=== PATIENT | female | born 1965 | race Caucasian/White ===

== ENCOUNTER 2016-11-13 12:46 | Inpatient (IN) | payer OTHER ==
[~2016-11-13] VITALS: Ht 162.6 cm; Wt 135.2 kg
--- NOTE | ~2016-11-13 | DS ---
PATIENT'S NAME: CHAMP COPELAND [facility] AGE: 51 Y [address] ROOM: [place] [address] LOCATION: [facility] [place] ADMIT DATE: 11/13/2016 Discharge Summary DISCHARGE DATE: 11/18/2016 FAMILY PHYSICIAN: Timoteo Hansen MD ATTENDING PHYSICIAN: Elliott Garcia V PRIMARY DIAGNOSES: 1. Anasarca. 2. Alcoholic cirrhosis of the liver, decompensated. 3. Ascites. 4. Anemia of chronic disease. 5. Pancytopenia secondary to alcoholic cirrhosis of the liver. 6. Acute kidney injury. 7. Chronic kidney disease, stage III. 8. Morbid obesity. OPERATIONS/PROCEDURES: None. HISTORY OF PRESENTING ILLNESS/REASON FOR ADMISSION: Please refer the H and P dictated on 11/13/2016. HOSPITAL COURSE: The patient was admitted to the hospital as noted above with a presumptive diagnosis of anasarca. She is well known to the Gastroenterology service. She was placed on fluid restriction as well as an aggressive diuretic regimen with Bumex drip. Her clinical condition improved gradually. She had nearly 20 L diuresis over the course of her hospital stay. She remained hemodynamically stable and her appetite remained good. She engaged in some restorative cares with the physical therapy, occupational therapy, and returned to independent status. Gastroenterology did provide clinical follow up. Her counts remained stable. By the end of the 6th day of her hospital stay, it was felt she would be stable enough for discharge to home on her home medication regimen and fluid restriction. DISCHARGE INSTRUCTIONS: Diet: Regular as tolerated, 2.5 L per 24 hour fluid restriction. MEDICATIONS: 1. Vitamin C 500 mg p.o. daily. 2. Calcium 1000 mg p.o. b.i.d. 3. Thermotabs 3 tabs p.o. b.i.d. PATIENT'S NAME: HOLLY COPELANDA Kamla [facility] AGE: 51 Y [address] ROOM: [place] [id number] LOCATION: [facility] [place] ADMIT DATE: 11/13/2016 Discharge Summary DISCHARGE DATE: 11/18/2016 FAMILY PHYSICIAN: Timoteo Hansen MD ATTENDING PHYSICIAN: Elliott Garcia V 4. Formula 303 four tabs p.o. b.i.d. 5. Chlorophyll drops 25 drops each evening. 6. Multivitamin daily. 7. Calcium with vitamin D3 daily. 8. Vitamin B12 daily. 9. Diazepam 2 mg p.o. at bedtime. 10. Iron 650 mg p.o. daily. 11. Folate 1 mg p.o. daily. 12. Lasix 120 mg p.o. b.i.d. 13. Gabapentin 600 mg p.o. q.6 hours. 14. Lactulose 40 mL p.o. at bedtime. 15. Mag oxide 400 mg p.o. b.i.d. 16. Metolazone 10 mg p.o. daily. 17. Protonix 40 mg p.o. daily. 18. Potassium 40 mEq p.o. b.i.d. 19. Rifaximin 550 mg p.o. b.i.d. 20. Spironolactone 200 mg p.o. b.i.d. 21. Thiamin 100 mg p.o. daily. 22. Milk thistle 500 mg p.o. b.i.d. 23. Florajen 3 capsule 460 mg p.o. daily. FOLLOWUP: She will follow up with Dr. Hansen in 7 to 10 days. She will follow up with Dr. Horn in 1 to 3 months. CONDITION ON DISCHARGE: Fair. Total time spent on discharge process 40 minutes. MD SALINAS SKY/aman /[id number] d: 11/19/16 0430 t: 11/20/16 1627, DISCHARGE SUMMARY
--- NOTE | ~2016-11-13 | ER ---
PATIENT'S NAME: CHAMP COPELAND [facility] AGE: 51 Y [address] ROOM: [id number] [place], [place] [address] [place] [facility] [place]: 11/13/2016 ER/Outpatient Report DISCHARGE DATE: FAMILY PHYSICIAN: DANE REYES MD ATTENDING PHYSICIAN: GILBERT STRICKLAND V Time of Arrival: 1330 hours. Time of Exam: 1340 hours. CHIEF COMPLAINT: Fluid retention. HISTORY OF PRESENT ILLNESS: The patient states that she had talked with Dr. Horn, the gastroenterology provider, about her feelings of increased fluid retention. She thought she would be a direct admit. When we contacted his office, they wanted her to be evaluated here in the ER. The patient states 2 weeks ago her Lasix was decreased from 120 mg b.i.d. to 80 mg b.i.d. She said within 5 days of decreased dose, she gained quite a bit of water weight and could tell that her stomach was much bland than what it had been. She then did start the Lasix back up at 120 mg b.i.d., but she continues to have fluid retention. She has a history of liver cirrhosis with ascites and has had to have a peritoneal tap done in the past. She did fall at home a couple days ago, states she bruised her knees bilaterally, but does not have any pain per se in that area. She reports that she gets short of breath with minimal activity. She has generalized discomfort everywhere, has quite a bit of swelling of her lower extremities. ALLERGIES: ON THE CHART AND REVIEWED BY ME. MEDICATIONS: On the chart and reviewed by me. 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 PAST SURGERIES: Include surgery to the left eye, low back surgery, and hernia repair. She did smoke, she states she quit in 1998. Denies use of drugs or alcohol at this time. PATIENT'S NAME: CHAMP COPELAND [facility] AGE: 51 Y [address] ROOM: [id number] [place], [place] [address] [place] [facility] [place]: 11/13/2016 ER/Outpatient Report DISCHARGE DATE: FAMILY PHYSICIAN: DANE REYES MD ATTENDING PHYSICIAN: GILBERT STRICKLAND V REVIEW OF SYSTEMS: All negative other than those mentioned in the HPI. PHYSICAL EXAMINATION: VITAL SIGNS: She weighed 149.3 kg; blood pressure is 115/54; pulse of 100; respirations 22; temperature of 98.4, tympanic; O2 saturation is 92% on room air. GENERAL: She is awake, alert, and oriented x4. SKIN: [place], warm, and dry. LUNGS: Respirations are even and nonlabored. Lung sounds are clear throughout. HEART: Regular rate and rhythm. ABDOMEN: Round. Bowel sounds are present. LABORATORY DATA AND X-RAYS: CBC shows a white count of 5.3, her hemoglobin 7.4, hematocrit of 21.3, platelets are 44. Chem panel; sodium is 131, potassium is 4.3, chloride of 99, BUN is 19 with a creatinine of 1.1. GFR is 52. ProBNP was 51. Her protime is 12.1 with an INR of 1.15. Clean-catch UA was obtained, it is negative. I did call and talk with Dr. Horn. He would like the hospitalist to place the patient on observation for further care. IMPRESSION: Ascites with dyspnea on exertion. PLAN: Dr. Patel was contacted. The patient will be placed in observation for hospitalist with Dr. Horn consulting. The patient and her are aware of plan of care. SALVATORE VAUGHAN APRN FOR MD STANLEY SCHAFFER/aman /[id number] d: 11/14/16 0252 t: 11/20/16 1029, OUTPATIENT REPORT
--- NOTE | ~2016-11-13 | HP ---
[facility] 51 Y [address] ROOM: [place] [address] [place] [facility] [place]: 11/13/2016 History & Physical DISCHARGE DATE: FAMILY PHYSICIAN: DANE REYES MD ATTENDING PHYSICIAN: GILBERT STRICKLAND V DATE OF SERVICE: CHIEF COMPLAINT: Filling up with fluids. HISTORY OF PRESENT ILLNESS: The patient is a 51-year-old female with past medical history of alcoholic cirrhosis, with portal hypertension and chronic as well as recurrent volume overload. The patient had a transient decrease in her furosemide dose, which is managed by her senior strategy manager several weeks ago. Subsequent to that she was put back on her regular dose which is 120 p.o. b.i.d., but she has been developing continued abdominal distention as well as lower extremity edema. Today, her weight is up 30 pounds from the last recorded weight which was done approximately 1 month ago. The patient has frequent exacerbations of her chronic ascites and requires bumetanide and albumin combination to help diurese. She denies any chest pain, shortness of breath, nausea, vomiting, or palpitations. REVIEW OF SYSTEMS: All 10 systems have been reviewed and all are negative except for pertinent positives mentioned above. PAST MEDICAL HISTORY: 1. Significant for pancytopenia due to hypersplenism. 2. Alcoholic cirrhosis with recurrent ascites. 3. Documented history of Guillain-[place]. 4. Chronic hyponatremia. 5. Peripheral neuropathy. 6. Facial trauma with loss of left eye. SOCIAL HISTORY: Significant for distant history of alcohol abuse, but no active toxic habits now. PATIENT'S NAME: HOLLY COPELANDA Kamla [facility] AGE: 51 Y [address] ROOM: [place] [id number] [place] [facility] [place]: 11/13/2016 History & Physical DISCHARGE DATE: FAMILY PHYSICIAN: DANE REYES MD ATTENDING PHYSICIAN: GILBERT STRICKLAND V FAMILY HISTORY: Reviewed and is noncontributory due to known underlying etiology for her presentation. CURRENT MEDICATIONS: 1. Ascorbic acid. 2. Vitamin D3. 3. Calcium carbonate. 4. Cyanocobalamin. 5. Diazepam. 6. Ferrous sulfate 650 b.i.d. 7. Folic acid. 8. Furosemide 120 b.i.d. 9. Gabapentin 600 every 6 hours. 10. Acidophilus. 11. Lactulose. 12. Magnesium oxide. 13. Metolazone 10. 14. Milk thistle. 15. Multivitamin. 16. Pantoprazole. 17. Potassium chloride. 18. Rifaximin. 19. Thermotabs. 20. Spironolactone 200 p.o. b.i.d. 21. Thiamine. 22. Formula 303, do not know what that is. 23. Chlorophyll drops. PHYSICAL EXAMINATION: VITAL SIGNS: Temperature 98.5, pulse is 91, respirations 18, blood pressure 144/66, saturating 100% on room air. GENERAL: Appears well-developed, morbidly obese, middle-aged female, in no acute distress. NEUROLOGIC: Nonfocal. HEENT: Eye exam shows a damaged left globe. LYMPHATIC: No cervical lymphadenopathy. ENDOCRINE: No thyromegaly. LUNGS: Clear to auscultation. HEART: Rate is regular with no appreciable murmurs, gallops, or rubs. GI: Abdomen is distended, nontender. No fluid wave. Normoactive bowel sounds. VASCULAR: Reveals 2+ pedal pulses and 2+ nonpitting lower extremity edema. SKIN: Warm and dry. MUSCULOSKELETAL: Unremarkable. PATIENT'S NAME: CHAMP COPELAND [facility] AGE: 51 Y [address] ROOM: [place] [address] [place] [facility] [place]: 11/13/2016 History & Physical DISCHARGE DATE: FAMILY PHYSICIAN: DANE REYES MD ATTENDING PHYSICIAN: GILBERT STRICKLAND V PSYCHIATRIC: Appropriate mood, cognition, and affect. LABORATORY DATA: Lab studies done today significant for sodium 131. Albumin of 2.8. Bilirubin of 1.0. White count is 5.3, hemoglobin 7.4, platelets of 44. INR is 1.15. Unremarkable urinalysis. Ultrasound shows small amount of ascites with previously known cirrhosis. ASSESSMENT AND PLAN: This is a 51-year-old female who is admitted with worsening ascites. Individual problems to be addressed as follows. 1. Worsening ascites. Given the small size of the ascites as well as thrombocytopenia, anemia and the patient being a Orthodox, not accepting blood products, the risks of paracentesis exceed the benefits. We will begin the patient on a high-dose IV bumetanide as well as albumin and try and diurese her. We will consider requesting a GI consultation in the morning. 2. Peripheral neuropathy. Continue with gabapentin. 3. Chronic anemia/thrombocytopenia. We will monitor her H and H and platelet counts. 4. Deep venous thrombosis prophylaxis. Will be nonpharmacologic. 5. Alcoholic cirrhosis. We will continue the patient on rifaximin and lactulose. Additional management will depend on clinical course. Time dedicated to this patient's encounter is 35 minutes. MD GEETA NGO/aman /[id number] D: [id number] T: 345 HISTORY & PHYSICAL
[~2016-11-13 12:46] MED LIST: ALBUMIN IV; ALDACTONE100 MG PO; ALDACTONE50 MG PO; ALEVE220 M1 PO; ALIGN4 MG PO; ARTIFICIAL TEAR15 M1 OPHTH; BACTRIM DS1 TAB PO; C-500500 M1 PO; CALCIUM 1,0001 EACH PO; CALCIUM CARB PO; CARAFATE1 GM PO; CENTRUM SILVER1 TAB PO; CHLOROPHYLL PO; COMPLETE MULTI1 EACH PO; COREG3.125 MG; ENULOSE UD L30 ML/EA PO; FEOSOL325 MG PO; FLORAJEN3 CAPS460 MG PO; FOLIC ACID1 MG PO; FORMULA 303 PO; K-TAB 10MEQ10 MEQ; K-TAB ER20 MEQ PO; KLOR-CON M2020 MEQ PO; LACTULOSE10 GM/151 PO; LASIX40 M1 PO; LASIX40 MG PO; LEVAQUIN250 MG; LEVAQUIN500 MG PO; MAG-OX-400(241400 MG PO; MAGNESIUM400 M1 PO; METOLAZONE10 MG PO; METOLAZONE5 MG PO; MILK THISTLE500 MG PO; MULTIVITAMINS1 EAC1 PO; NEURONTIN600 MG PO; NORCO 5-325 MG1 TAB PO; PROBIOTIC1 EAC1 PO; PROTONIX40 MG PO; SPIRONOLACTONE100 MG PO; THERMOTABS TAB1 EACH PO; TUMS PO; TUMS200 MG PO; TYLENOL325 MG; VALIUM2 MG PO; VIACTIV SOFT C1 EACH PO; VITAMIN B-1100 M1 PO; VITAMIN B-1100 MG PO; VITAMIN B1 PO; VITAMIN B125000 MCG PO; XIFAXAN550 MG PO
[2016-11-13 13:45] LABS: BILIRUBIN URINE NEGATIVE (NEGATIVE); BLOOD URINE NEGATIVE /UL (NEGATIVE); COLOR URINE YELLOW (YELLOW); GLUCOSE URINE NEGATIVE (NEGATIVE); KETONE URINE NEGATIVE (NEGATIVE); LEUKOCYTES URINE NEGATIVE /UL (NEGATIVE); NITRITE URINE NEGATIVE (NEGATIVE); PROTEIN URINE NEGATIVE (NEGATIVE); TURBIDITY URINE CLEAR (CLEAR); UROBILINOGEN URINE NORMAL (NORMAL)
[2016-11-13 14:16] LABS: BASOPHIL % 0.4 %; EOSINOPHIL # 0.1 K/uL (0.0-0.5); EOSINOPHIL % 1.3 %; HEMATOCRIT 21.3 % (33.0-46.0); IMMATURE GRANULOCYTE # 0.1 K/uL (0.0-0.3); LYMPHOCYTE # 0.6 K/uL (0.8-4.0); MCV 99.1 fl (83.0-98.0); MONOCYTE # 0.6 K/uL (0.0-1.0); NEUTROPHIL % 75.3 %; NRBC % 0 /100WBC (0-0.00); RBC 2.15 M/uL (3.50-5.50); RDW-CV 16.2 % (11.9-14.6); WBC 5.3 K/uL (4.0-11.0)
[2016-11-13 14:18] LABS: HEMOGLOBIN 7.4 g/dL (10.0-15.0); MCH 34.4 pg (27.0-34.0); MCHC 34.7 gm/dL (32.0-36.5)
[2016-11-13 14:21] LABS: PLATELET COUNT 44 K/uL (150-450)
[2016-11-13 14:33] LABS: ALBUMIN 2.8 gm/dL (3.5-5.0); ANION GAP 15.3 (10.0-19.0); CREATININE 1.1 mg/dL (0.5-1.1); POTASSIUM 4.3 mMol/L (3.7-5.1)
[2016-11-13 14:37] LABS: INR - (THERAPEUTIC) 1.15 (0.92-1.07); PROTIME 12.1 SECONDS (9.8-11.4)
[2016-11-13] MEDS ORDERED: VALIUM2 MG PO (15:23)
--- NOTE | 2016-11-13 17:49 | NUR ---
Patient arrived to floor at 1710 from ER. AOx3. VSS. Has some numbness and tingling in nicolasa feet and fingers which is prior to admission. Patient's abdomen is distended and tender. HBG is 7.4. Patient has history of falls. Last fall was 11/13/16. Anemia present. at bedside.
[2016-11-14 06:07] LABS: BASOPHIL % 0.5 %; EOSINOPHIL # 0.1 K/uL (0.0-0.5); EOSINOPHIL % 2.1 %; HEMATOCRIT 20.9 % (33.0-46.0); IMMATURE GRANULOCYTE % 0.8 %; LYMPHOCYTE # 0.6 K/uL (0.8-4.0); LYMPHOCYTE % 15.5 %; MCV 100.5 fl (83.0-98.0); MONOCYTE # 0.4 K/uL (0.0-1.0); MONOCYTE % 11.2 %; MPV 10.9 fl (9.4-12.4); NEUTROPHIL # (ANC) 2.6 K/uL (1.8-7.8); NEUTROPHIL % 69.9 %; NRBC % 0 /100WBC (0-0.00); RBC 2.08 M/uL (3.50-5.50); RDW-CV 16.4 % (11.9-14.6); WBC 3.8 K/uL (4.0-11.0)
[2016-11-14 06:08] LABS: MCH 33.7 pg (27.0-34.0); MCHC 33.5 gm/dL (32.0-36.5); PLATELET COUNT 38 K/uL (150-450)
[2016-11-14 06:26] LABS: ANION GAP 14.2 (10.0-19.0); CALCIUM 8.1 mg/dL (8.5-10.5); CREATININE 1.1 mg/dL (0.5-1.1); POTASSIUM 4.2 mMol/L (3.7-5.1)
--- NOTE | 2016-11-14 07:16 | NUR ---
Significant Event: Pt alert and oriented. Up SBA with walker. Port to left chest flushes hard but has good blood return. Pt blind in left eye. Dr. Horn to see today. Regular diet with 2500ml fluid restriction. Follow up:
[2016-11-14 15:45] LABS: CALCIUM 8.3 mg/dL (8.5-10.5); CREATININE 1.2 mg/dL (0.5-1.1)
--- NOTE | 2016-11-14 17:18 | NUR ---
Patient AAX3. Pleasant. No pain. VSS. Numbness and tingling in both hands and feet. Hemoglobin was 7 this AM. Patient Johovah Witness so no blood will be taken. SBA with walker and gaitbelt. Port in left chest with good blood return. Bumex drip discontinued but will have IV bumex pushes at times. Albumin still being hung. No O2. Regular diet with excellent appetite. Fluid restriction of 2500mL. Gatorade per MD to be drank instead of water.
--- NOTE | 2016-11-15 04:29 | NUR ---
Patient alert and oriented x3, very talkative, is very concerned about medications and fluid restriction, asks about both frequently, has a port in place to left chest has the "childrens" tegaderm over site due to skin irritation caused by adhessive, c/o itching to the dressing no reddness or irritation noted, transfers well one assist with walker and gaitbelt, is on 2500ml fluid restriction, has rested well tonight
[2016-11-15 05:49] LABS: BASOPHIL % 0.3 %; EOSINOPHIL % 1.4 %; HEMATOCRIT 19.6 % (33.0-46.0); IMMATURE GRANULOCYTE % 0.7 %; LYMPHOCYTE # 0.5 K/uL (0.8-4.0); LYMPHOCYTE % 17.6 %; MCV 101.6 fl (83.0-98.0); MONOCYTE # 0.4 K/uL (0.0-1.0); MONOCYTE % 12.8 %; MPV 10.9 fl (9.4-12.4); NEUTROPHIL % 67.2 %; NRBC % 0 /100WBC (0-0.00); RBC 1.93 M/uL (3.50-5.50); RDW-CV 16.2 % (11.9-14.6); WBC 2.9 K/uL (4.0-11.0)
[2016-11-15 05:51] LABS: ANION GAP 12.3 (10.0-19.0); CALCIUM 8.4 mg/dL (8.5-10.5); CREATININE 1.2 mg/dL (0.5-1.1); HEMOGLOBIN 6.5 g/dL (10.0-15.0); MCH 33.7 pg (27.0-34.0); MCHC 33.2 gm/dL (32.0-36.5); PLATELET COUNT 35 K/uL (150-450); POTASSIUM 3.3 mMol/L (3.7-5.1)
--- NOTE | 2016-11-15 15:20 | NUR ---
Met with patient and her spouse at bedside today. Introduced myself and the role of the CM department. Patient states she has had multiple hospitalizations and she is fully aware of her needs at discharge. Patient and her both address concerns the treatment and care of patient in the ER on Friday. They state that patient spoke to Dr. Horn's office on Friday and they were told by his office to come to the hospital and stop at admission because he wants her admitted and treated. They got to the hospital and the admission department did not have any information on patient. So they told the patient to go to the ER. Patient and spouse went to the ER and ended up in the ER for 5.5 hours. They state all that happened during that 5.5 hour time period was patient had a US, but nothing more was done. Patient was NPO all of that time. They would ask the nurses what was going on or when they would be transferred to a room and get told that they did not know or they were working on it. They state no one came in and told them what the hold up was or when they anticipated having an open bed. No one bothered to check on them or see if they needed anything. Patient's states that he was having difficulties with his Parkinson's partly due to being upset/angry and partly because of the uncomformtable chair he sat in all day. Per them patient did not get to the floor until around 1900. She states she asked if she could order food as she had not ate all day and was told no because they did not have orders from the doctor yet. She states finally they told her to go ahead and get some food and patient states that was a good thing because the doctor did not come into see her until sometime after 2300. They both state that in past they have had excellent care from the hospital so Friday's incident was out of the ordinary for them with past experiences. Since arriving to the floor the care has been great. I let them know that I will share their concerns with the appropriate individuals and they were appreciative of this. They deny no other needs or concerns at this time.
--- NOTE | 2016-11-15 16:30 | NUR ---
SIGNIFICANT EVENT: PATIENT ALERT AND ORIENTED X3. VERY TALKATIVE AND COOPERATIVE WITH CARES. STAND BY ASSIST TO BATHROOM. URINE OUTPUT OF 4500 TODAY. HAS A PORT PLACED IN LEFT UPPER CHEST. HAS CHILDRENS TEGADERM OVER SITE DUE TO SKIN IRRITATION CAUSED BY ADHESSIVE. 2500ML FLUID RESTRICTION. UP WITH PT/OT DURING DAY. DOES NOT COMPLAIN OF PAIN BUT STATES THAT THE PAIN IS A CONSTANT NUMBNESS AND TINGLE IN HANDS AND FEET. 590ML OF FLUIDS DURING SHIFT. PATIENT IS JOHOVAH WITNESS SO NO BLOOD WILL BE TAKEN. REGULR DIET. PREFERS GATORDE OVER WATER. FOLLOW UP: CONTINUE TO MONITOR
--- NOTE | 2016-11-15 19:33 | NUR ---
I HAVE REVIEWED AND AGREE WITH CHARTING DONE BY SN DALIA.
[2016-11-15 21:39] LABS: ANION GAP 14.2 (10.0-19.0); CALCIUM 8.8 mg/dL (8.5-10.5); CREATININE 1.2 mg/dL (0.5-1.1); POTASSIUM 4.2 mMol/L (3.7-5.1)
--- NOTE | 2016-11-16 03:05 | NUR ---
A&0. No nausea. No c/o pain. Ambulated in halls at 0300. SBA. Voiding often and copious amounts. Daily weight. Port to left chest. Nurse draws. 2500ml fluid restriction. Can not use regular tegaderm on port (patient allergic)- must use IV 3000. Blind in left eye. Low Hgb. Sabianist- no infusions.
[2016-11-16 04:58] LABS: ANION GAP 12.8 (10.0-19.0); CALCIUM 8.8 mg/dL (8.5-10.5); CREATININE 1.2 mg/dL (0.5-1.1); POTASSIUM 3.8 mMol/L (3.7-5.1)
[2016-11-16 04:59] LABS: BASOPHIL % 0.3 %; EOSINOPHIL # 0.1 K/uL (0.0-0.5); EOSINOPHIL % 1.9 %; HEMATOCRIT 20.9 % (33.0-46.0); IMMATURE GRANULOCYTE % 0.8 %; LYMPHOCYTE # 0.7 K/uL (0.8-4.0); LYMPHOCYTE % 19.1 %; MONOCYTE # 0.6 K/uL (0.0-1.0); MONOCYTE % 14.9 %; MPV 11.4 fl (9.4-12.4); NEUTROPHIL # (ANC) 2.4 K/uL (1.8-7.8); NRBC % 0 /100WBC (0-0.00); RBC 2.07 M/uL (3.50-5.50); RDW-CV 16.3 % (11.9-14.6); WBC 3.8 K/uL (4.0-11.0)
[2016-11-16 05:02] LABS: MCH 33.8 pg (27.0-34.0); MCHC 33.5 gm/dL (32.0-36.5); PLATELET COUNT 44 K/uL (150-450)
--- NOTE | 2016-11-16 15:53 | NUR ---
Significant Event:Is A/O.Has LT.chest portacath.Is on 2500ml fld restriction a day.Is blind in Lt.eye & is whitish in color.Had a stool today."Achey back today".Has been up with standby assist. Follow up:
[2016-11-16 18:22] LABS: CALCIUM 8.8 mg/dL (8.5-10.5); CREATININE 1.3 mg/dL (0.5-1.1)
--- NOTE | 2016-11-17 04:09 | NUR ---
A&O. Rates pain at 5- which is patients baseline. No nausea. 2500ml fluid restriction. SBA with walker. Voiding copious amounts. BM x 4 this shift. Port to left chest. Blind in left eye. Possible discharge today.
[2016-11-17 05:14] LABS: CALCIUM 8.8 mg/dL (8.5-10.5); CREATININE 1.3 mg/dL (0.5-1.1)
[2016-11-17 05:21] LABS: BASOPHIL % 0.3 %; EOSINOPHIL # 0.1 K/uL (0.0-0.5); EOSINOPHIL % 1.5 %; HEMATOCRIT 19.8 % (33.0-46.0); IMMATURE GRANULOCYTE % 0.9 %; LYMPHOCYTE # 0.6 K/uL (0.8-4.0); LYMPHOCYTE % 16.3 %; MCV 102.1 fl (83.0-98.0); MONOCYTE # 0.6 K/uL (0.0-1.0); MONOCYTE % 16.3 %; MPV 11.9 fl (9.4-12.4); NEUTROPHIL # (ANC) 2.2 K/uL (1.8-7.8); NEUTROPHIL % 64.7 %; NRBC % 0 /100WBC (0-0.00); RBC 1.94 M/uL (3.50-5.50); RDW-CV 16.3 % (11.9-14.6); WBC 3.4 K/uL (4.0-11.0)
[2016-11-17 05:22] LABS: HEMOGLOBIN 6.6 g/dL (10.0-15.0); MCHC 33.3 gm/dL (32.0-36.5); PLATELET COUNT 36 K/uL (150-450)
--- NOTE | 2016-11-17 13:47 | NUR ---
Significant Event: Alert/oriented. VSS on RA. Left chest port intact, no complications; bacitraicin ointment to blister from previous tegaderm. Continues on Accurate I/O and fluid restriction. Takes neurontin for chronic back pain. Follow up:
--- NOTE | 2016-11-18 05:07 | NUR ---
A&O. VSS. Pain baseline is 5. 2500 ml fluid restriction. Accurate I/O's. Voids copious amounts. SBA to bathroom with wheeled walker. 5 BMs this shift. Port to left chest. Nurse draw. Blind in left eye.
[2016-11-18 06:07] LABS: HEMATOCRIT 19.8 % (33.0-46.0)
[2016-11-18 06:10] LABS: HEMOGLOBIN 6.7 g/dL (10.0-15.0)
[2016-11-18 06:11] LABS: ANION GAP 13.8 (10.0-19.0); CALCIUM 8.6 mg/dL (8.5-10.5); CREATININE 1.3 mg/dL (0.5-1.1); POTASSIUM 3.8 mMol/L (3.7-5.1)
--- NOTE | 2016-11-18 08:42 | NUR ---
PT SCREENED D/T LOS. EST NEEDS: [id number] KCALS, 81-93 GM PROTEIN, NO FLUIDS ON TRAY. GOOD INTAKE. NO NUTRITION-RELATED DX IDENTIFIED. WILL ASSIST NEEDED.
--- NOTE | 2016-11-18 12:25 | NUR ---
Patient is discharging to home with no additional needs.
--- NOTE | 2016-11-18 13:09 | NUR ---
D:Orders received for patient to be dismissed. I:Dismissal instructions were prepared and reviewed with the patient. The following information was reviewed: diet and activity recommendations for home, abnormal s/s to report to MD, home medications (pt did not go home w/ any new prescriptions), DVT prevention for home and plans for follow up appointments with Dr. Timoteo Hansen and Dr. Burton next week. Paulie teaching was unavailable to use therefore DVT prevention sheet was not given to the patient. R:The patient verbalized understanding of above teaching and denied further questions at the time. P:The patient's primary nurse, Anais LOPEZ, was informed that the dismissal instructions had been reviewed with the patient. The paperwork would be taken in for the patient to sign. The patient will be dismissed later this afternoon when her ride arrives. Jeremy LOPEZ
[2017-02-06] MEDS ORDERED: B COMPLEX1 EACH PO (10:51)
[2017-03-26] MEDS ORDERED: TUMS REGULAR ST1 TAB PO (09:57)
== END 2016-11-18 15:12 | disposition disaster alternative care site (69) | DRG 433 ==
LOC: GMED 12:46 → GMSU 14:48
PROVIDERS: Family Medicine; Nurse Practitioner Family; ADMIT Internal Medicine
DX: K70.31 Alcoholic cirrhosis of liver with ascites (principal); E87.1 Hypo-osmolality and hyponatremia; K70.30 Alcoholic cirrhosis of liver without ascites; D61.818 Other pancytopenia; D69.6 Thrombocytopenia, unspecified; Z68.43 Body mass index [BMI] 50.0-59.9, adult; E66.01 Morbid (severe) obesity due to excess calories; D50.9 Iron deficiency anemia, unspecified; D64.9 Anemia, unspecified; E87.6 Hypokalemia; G62.9 Polyneuropathy, unspecified; K21.9 Gastro-esophageal reflux disease without esophagitis; I12.9 Hypertensive chronic kidney disease with stage 1 through stage 4 chronic kidney disease, or unspecified chronic kidney disease; N18.9 Chronic kidney disease, unspecified
CPT/HCPCS: J1650; J7050; P9047

== ENCOUNTER → 2017-02-07 | Outpatient (CLI) | payer OTHER ==
[~2017-02-07] MED LIST changes: +B COMPLEX1 EACH PO; +LACTINEX (FLORA1 TAB PO; +TUMS REGULAR ST1 TAB PO
[2017-02-07 15:36] LABS: INR - (THERAPEUTIC) 1.14 (0.92-1.07)
== END | disposition disaster alternative care site (69) ==
LOC: GOPD 02-06
PROVIDERS: Physician Assistant
DX: R18.8 Other ascites (principal)

== ENCOUNTER 2017-02-17 16:47 | Inpatient (IN) | payer OTHER ==
[~2017-02-17] VITALS: Ht 154.9 cm; Wt 139.5 kg
--- NOTE | ~2017-02-17 | DS ---
PATIENT'S NAME: CHAMP COPELAND [facility] AGE: 51 Y [address] ROOM: [address] [address] LOCATION: GPCU ADMIT DATE: 02/17/2017 Discharge Summary DISCHARGE DATE: 02/25/2017 FAMILY PHYSICIAN: Reji Hansen MD ATTENDING PHYSICIAN: Michaelle Bravo FINAL DIAGNOSES: 1. Hypervolemic hyponatremia. 2. Fluid overload secondary to dietary indiscretion with anasarca. 3. Alcoholic cirrhosis with decompensation. 4. Morbid obesity. 5. Anemia of chronic disease. 6. Chronic kidney disease, stage 3. 7. High-risk medications in the form of Lasix and Aldactone. CONSULTANTS ON THE CASE: 1. Dr. Angel, Nephrology. 2. Courtesy consult, Dr. Horn. HOSPITAL COURSE: Please see details of admission and H and P by Dr. Bravo. Briefly, the patient was admitted with volume overload. Heparin was utilized throughout her stay for DVT prophylaxis. Nephrology was consulted. The patient was started on Bumex 6 mg IV bolus and a drip at 2 mg/hour. The patient was given albumin 25% 25 g IV for 6 doses. Fluid restriction was placed at 1500 mL. The patient's in's and out's were monitored closely. We had some difficulty with IV access, and a midline was placed without complication. We did have occupational and physical therapy follow the patient throughout her stay. On hospital day 2, the patient's sodium started to increase with the diuresis. We did further restrict her fluids to assist with the hyponatremia. The patient does have history of anemia of chronic disease and was supposed to see Dr. Nascimento. Unfortunately, the patient was hospitalized, I did place a call to his office. He was able to see the patient, and completed a bone marrow biopsy as per his original plan for her anemia workup. The patient had good diuresis throughout her stay. I did have to replace some potassium. Her Bumex was able to be decreased on 02/21/2017 down to 1 mg/hour. Aldactone orally was started. The patient was given EPO for hemoglobin of 6.6 on 02/21/2017. The patient was able to progress further and further with physical therapy each stage during her hospitalization. Weight significantly decreased starting at 156.7 on admission, and at the time of her discharge, her weight was 139.5 kilos. On 02/24/2017, we were able to stop the Bumex drip and switch her over to oral diuretics. On 02/25/2017, it was felt that the patient could safely be discharged home to continue to follow with adequate diuresis and renal evaluation. LABORATORY STUDIES: On admission, sodium was 132, potassium 4.3, chloride PATIENT'S NAME: CHAMP COPELAND [facility] AGE: 51 Y [address] ROOM: [address] [place], [place] [address] LOCATION: [facility]PCU ADMIT DATE: 02/17/2017 Discharge Summary DISCHARGE DATE: 02/25/2017 FAMILY PHYSICIAN: Reji Hansen MD ATTENDING PHYSICIAN: Michaelle Bravo 101, bicarb 23, glucose 125, BUN 17, creatinine 1.0. Creatinine did rise to 1.4 on the day of discharge. Sodium was at 137 on the day of discharge. Iron was 97, TIBC 381, percent saturation was 25, osmolality was 269, ferritin was 21.7 on admission, white blood cell count was 3.9, hemoglobin 7.5, hematocrit 22.7, platelets 42. Prior to discharge, white blood cell count was 4.7, hemoglobin 7.2, hematocrit 22, platelets 48. Random urine: Sodium was 77, potassium was 25, urine osmo 228. DISCHARGE INSTRUCTIONS: The patient is discharged home. Diet, the patient is to have a 1.5 L fluid restriction. Activity is as tolerated. She will follow up with Dr. Nascimento in [place] on 03/20/2017 at 1:00 p.m. she will follow up with Dr. Montesinos in [address] Angel in 2 weeks and GI clinic in 1 month. DISCHARGE MEDICATIONS: 1. Protonix 40 mg daily. 2. Neurontin 600 mg every 6 hours. 3. Potassium chloride 40 mEq daily. 4. Ferrous sulfate 325 mg twice daily. 5. Magnesium oxide 800 mg twice daily. 6. Folic acid 1 mg daily. 7. Lasix 160 mg twice daily, this is to start on 02/26/2017. 8. Lactulose 45 mL daily. 9. Milk Thistle as directed. 10. Vitamin B12 5000 mcg daily. 11. Acidophilus 460 mg daily. 12. Multivitamin 1 tablet daily. 13. Calcium plus vitamin D3 1000 mg twice daily. 14. Spironolactone 200 mg twice daily to be started on 02/26/2017. 15. Calcium, vitamin D, vitamin K one tablet twice daily. 16. Rifaximin 550 mg twice daily. 17. Ascorbic acid 500 mg daily. 18. Thiamine 100 mg daily. 19. Diazepam 2 mg at bedtime. 20. Vitamin B complex 1 tablet daily. 21. Lactobacillus 1 tablet daily. We do appreciate participating in this patient's care, and thank you very much for the ability to serve her while hospitalized at [facility]. Time spent coordinating details of discharge was 40 minutes, of which was spent coordinating with consulting physicians and Care Management, completion of medication reconciliation, education to the patient, and family on the above-mentioned diagnoses. PATIENT'S NAME: CHAMP COPELAND [facility] AGE: 51 Y [address] ROOM: [place] [address] LOCATION: GPCU ADMIT DATE: 02/17/2017 Discharge Summary DISCHARGE DATE: 02/25/2017 FAMILY PHYSICIAN: Reji Hansen MD ATTENDING PHYSICIAN: Michaelle Bravo PA FOR JAMIE HAYES MD FATIMAH/modl /[id number] d: 02/26/17 0200 t: 03/12/17 1105, DISCHARGE SUMMARY
--- NOTE | ~2017-02-17 | CON ---
PATIENT'S NAME: CHAMP COPELAND [facility] AGE: 51 Y [address] ROOM: [address] [address] LOCATION: GPCU ADMIT DATE: 02/17/2017 Consultation DISCHARGE DATE: FAMILY PHYSICIAN: Reji Hansen MD ATTENDING PHYSICIAN: KASSANDRA DANIELLE DATE OF CONSULTATION: 02/18/2017 REFERRING PHYSICIAN: DAVID ANGEL This is a [facility] Nephrology consultation. REASON FOR CONSULTATION: Hyponatremia, renal insufficiency. HISTORY OF PRESENT ILLNESS: This is a 51-year-old female patient, with a longstanding history of alcoholic liver cirrhosis complicated with ascites, GI bleed, hepatic encephalopathy, spontaneous bacterial peritonitis, and more recent hyponatremia. The patient was recently seen by Dr. Angel on 12/10/2016 and at that time, had a sodium level that was found to be 122. Dr. Angel did note the patient was suffering from hypervolemic hypotonic hyponatremia. This is likely multifactorial in that the patient was on heavy diuretics including Lasix and Aldactone. Today, the patient did present to her primary care clinic for evaluation for worsening shortness of breath. Per the patient, she has gained more than 60 pounds over the past few months. Over the past 3 weeks, she does report 21 pounds increase in her weight. The patient has not been following an oral fluid restriction. However, she does continue to take 320 mg of her Lasix daily. She continues to complain of increased shortness of breath with activity. She does feel bloated and notes extreme peripheral edema in her lower extremities. She also did undergo a paracentesis with GI last week. However, they did not find any significant amount of ascites at that time. Therefore, due to the patient's history of hyponatremia as well as renal insufficiency, Dr. Angel has been asked to consult and manage the patient's fluid overload while she is hospitalized. PAST MEDICAL HISTORY: As listed above includin. Liver cirrhosis. 2. GI bleed. 3. Hepatic encephalopathy. 4. Spontaneous bacterial peritonitis. 5. Renal insufficiency. 6. Hyponatremia. 7. High-risk medications in the form of Lasix and Aldactone. 8. Volume overload. 9. Hypertension. 10. Anemia of chronic disease. 11. History of Guillain-Micro syndrome. 12. Morbid obesity. 13. Peripheral neuropathy. 14. 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 15. Recurrent ascites.PATIENT'S NAME: CHAMP COPELAND [facility] AGE: 51 Y [address] ROOM: [address] [place] [id number] [facility] DATE: 02/17/2017 Consultation DISCHARGE DATE: FAMILY PHYSICIAN: Reji Hansen MD ATTENDING PHYSICIAN: KASSANDRA DANIELLE PAST SURGICAL HISTORY: 1. History of therapeutic abdominal paracentesis. 2. Central line Port-A-Cath placement in the left chest. 3. Complete colonoscopy. 4. Eye surgery. 5. Lower back surgery. 6. Umbilical hernia repair. ALLERGIES: TO CONTRAST MEDIA. CURRENT HOME MEDICATIONS: 1. Aranesp 60 mcg as directed. 2. Ascorbic acid 500 mg daily. 3. Chlorophyll 3/0.6 mg daily. 4. Diazepam 2 mg daily. 5. Ferrous sulfate 325 mg 2 tablets twice a day. 6. Florajen 3 capsules daily. 7. Folic acid 1 mg daily. 8. Formula E 400 units oral capsule 4 tablets by mouth twice a day. 9. Furosemide 160 mg twice a day. 10. Gabapentin 600 mg 1 tab 4 times a day. 11. Lactulose 10 g/45 mL daily. 12. Magnesium oxide 400 mg 2 tablets twice a day. 13. Milk thistle 500 mg 1 tablet twice a day. 14. Multivitamin 1 tablet daily. 15. Protonix 40 mg daily. 16. Potassium chloride 20 mEq 2 tablets twice a day. 17. 100 mg take 2 tablets twice a day. 18. Thiamin 100 mg 1 tablet daily. 19. Tums 1000 mg twice a day. 20. Viactiv 500/500/40 mg 1 tablet twice a day. 21. Vitamin B12 5000 mcg daily. 22. Vitamin C 100 mg daily. 23. Xifaxan 550 mg 1 tab twice a day. FAMILY HISTORY: Reviewed and is noncontributory. There is no history of renal disease or dialysis. SOCIAL HISTORY: The patient is positive for former alcohol abuse. Denies any illicit drug use or smoking. Does currently live in [place].PATIENT'S NAME: CHAMP COPELAND [facility] AGE: 51 Y [address] ROOM: [id number] [place], [place] [address] [facility] DATE: 02/17/2017 Consultation DISCHARGE DATE: FAMILY PHYSICIAN: Reji Hansen MD ATTENDING PHYSICIAN: KASSANDRA DANIELLE REVIEW OF SYSTEMS: GENERAL: Complains of fatigue, but no fever. EYES: No change of vision. NOSE: No epistaxis or rhinorrhea. MOUTH: No gingival bleeding. THROAT: No sore throat, hoarseness, or cough. RESPIRATORY: Positive for dyspnea on exertion and shortness of breath. GASTROINTESTINAL: No nausea, vomiting, or diarrhea. CARDIOVASCULAR: No increase in chest pain or palpitations. Positive for lower extremity edema. GENITOURINARY: No dysuria or hematuria. No incontinence. ENDOCRINE: No polydipsia or no temperature intolerance. HEMATOLOGICAL AND LYMPHATIC: No unexplained bruising or bleeding. No lymphadenopathy or night sweats. PHYSICAL EXAMINATION: VITAL SIGNS: Blood pressure is 119/51, pulse is 88, respirations 16, temperature is 98.0, and weight is 156.7 kg. GENERAL: On exam, this is an alert and oriented white female, who appears her appropriate stated age and is in no acute distress. EYES: Artificial eye is noted in the left eye. Right eye does show pupils are equal, round, react briskly to light and accommodation. NOSE: Midline. MOUTH: No gingival bleeding. THROAT: Without lymphadenopathy or carotid bruits. NECK: Soft and supple. LUNGS: Lung sounds are diminished in the bases bilaterally. The patient is on 2 L nasal cannula. CARDIOVASCULAR: Distant heart tones noted. Rate is regular. Unable to appreciate any murmurs, rubs, or thrills. ABDOMEN: Obese. Bowel sounds positive. EXTREMITIES: Show 2 to 3+ lower extremity edema bilaterally. NEUROLOGIC: Cranial nerves II through XII are grossly intact. ASSESSMENT AND PLAN: 1. Hypervolemic hypotonic hyponatremia. The patient's sodium is 130 on admission. This is likely multifactorial. Dr. Angel does recommend that we obtain a urine sodium, urine potassium, urine osmol, as well as serum sodium and serum osmol for further recommendations. Due to the patient's significant volume overload, we are going to initiate Bumex therapy at 6 mg IV bolus followed by Bumex 2 mg/hour over the next 6 hours. We will continue to monitor strict intake and outputs as well as place the patient on a tight fluid restriction. We will continue with aggressive diuresis as the patient tolerates. We will utilize albumin for blood pressure support as needed. The patient is to continue low-sodium diet as well. PATIENT'S NAME: CHAMP COPELAND [facility] AGE: 51 Y [address] ROOM: [id number] [place], [place] [address] LOCATION: GPCU ADMIT DATE: 02/17/2017 Consultation DISCHARGE DATE: FAMILY PHYSICIAN: Reji Hansen MD ATTENDING PHYSICIAN: KASSANDRA DANIELLE 2. Chronic kidney disease stage 3. The patient's creatinine is currently stable. We will continue to monitor this throughout aggressive diuresis. 3. Decompensated liver disease secondary to alcoholic cirrhosis. Per primary team. 4. Anasarca. 5. Morbid obesity. This patient has been seen and assessed by Dr. Angel. Her care is being conducted in consultation with Dr. Angel as well as me. Further recommendations will be forthcoming. HOLLI LAM, CECILIA, LAST REPAIRER HELPER FOR [facility] ANGEL MD ENS/modl /[id number] d: 02/18/17 2326 t: 03/05/17 1012, CONSULTATION REPORT
--- NOTE | ~2017-02-17 | CON ---
PATIENT'S NAME: CHAMP COPELAND [facility] AGE: 51 Y [address] ROOM: [place] [id number] LOCATION: GPCU ADMIT DATE: 02/17/2017 Consultation DISCHARGE DATE: FAMILY PHYSICIAN: Reji Hansen MD ATTENDING PHYSICIAN: KASSANDRA DANIELLE DATE OF CONSULTATION: 02/18/2017 REFERRING PHYSICIAN: DAVID ANGEL REASON FOR CONSULTATION: Decompensated liver cirrhosis. HISTORY OF PRESENT ILLNESS: This is a very pleasant, 51-year-old female who is well known to our Gastroenterology Clinic. The patient has a history of decompensated liver cirrhosis secondary to alcohol. The patient has refrained from alcohol for a number of years. She has had frequent admissions secondary to ascites as well as increasing edema. The patient had been receiving IV Lasix as well as albumin treatments as an outpatient. She was evaluated on Friday for paracentesis, though there was not enough fluid to be tapped. The patient was admitted this time around with an approximate 40-pound weight gain as well as noticeable abdominal distention and increasing lower extremity edema. The patient denies any acute chest pain or chest pressure. She does state that she has some dyspnea with ambulation secondary to fluid overload. She denies any constipation, dark tarry stools, penelope abdominal pain, nausea, or vomiting. PAST MEDICAL HISTORY: Decompensated liver disease secondary to alcoholic cirrhosis, recurrent ascites, anemia of chronic disease, history of Guillian-[place], chronic hyponatremia, morbid obesity, peripheral neuropathy, and loss of left eye secondary to facial trauma. SOCIAL HISTORY: The patient is a former alcohol abuser. Denies any ongoing toxic habits. FAMILY HISTORY: Significant for hypertension in the patient's parents. ALLERGIES: THE PATIENT IS ALLERGIC TO IODINE CONTRAST. MEDICATIONS: Please refer to the medication administration record. [facility] AGE: 51 Y [address] ROOM: [address] [address] LOCATION: GPCU ADMIT DATE: 02/17/2017 Consultation DISCHARGE DATE: FAMILY PHYSICIAN: Reji Hansen MD ATTENDING PHYSICIAN: KASSANDRA DANILELE A REVIEW OF SYSTEMS: An all-point review of systems was completed, all were negative except for those identified in the History of Present Illness. PHYSICAL EXAMINATION: GENERAL: A pleasant, 51-year-old female, lying in bed, who appears to be in no acute distress. VITAL SIGNS: Temperature 98.3, pulse of 91, respirations of 18, blood pressure 127/53, and oxygen saturation is 98% on room air. SKIN: [place], warm, and dry. No jaundice. HEENT: Head is normocephalic and atraumatic. Pupils equal, round, and reactive to light. Sclerae are clear, nonicteric. Oral mucosa is pink and moist. No thyromegaly. NECK: Soft and supple. CARDIOVASCULAR: Regular. Normal S1 and S2. RESPIRATORY: Respirations even and unlabored. Slightly diminished in the bilateral lobes. ABDOMEN: Soft, round, and obese. No ascites felt. MUSCULOSKELETAL: No muscle weakness or atrophy. EXTREMITIES: 3+ pitting edema noted to bilateral lower extremities. NEUROLOGICAL: Grossly nonfocal. LABORATORY AND DIAGNOSTIC DATA: Laboratory obtained on admission showed a white blood cell count of 3.9, hemoglobin of 7.5, hematocrit of 22.7, and platelets of 42. Chemistry panel includes a glucose of 103, BUN of 17, creatinine of 1.0, sodium 130, potassium of 4.4, chloride of 100, and CO2 of 23. Albumin of 3.4. AST of 22, ALT of 27, and alkaline phosphatase of 99. Total bilirubin 1.1 and direct bilirubin of 0.5. ASSESSMENT AND PLAN: Again, this is a very pleasant, 51-year-old female with a history of decompensated liver cirrhosis secondary to history of alcohol use. The patient was admitted with fluid overload. She has been on numerous diuretics at home as well as receiving outpatient IV Lasix and albumin. The patient is currently being followed by Nephrology, Dr. Angel, for chronic kidney disease as well as chronic hyponatremia. Bumex drip is in place. We agree with continued albumin as well as diuretics per Nephrology. We will continue to follow the patient during the course of the patient's hospitalization. Thank you for this consult. PATIENT'S NAME: CHAMP COPELAND [facility] AGE: 51 Y [address] ROOM: [address] [place], [place] [address] [facility] DATE: 02/17/2017 Consultation DISCHARGE DATE: FAMILY PHYSICIAN: Reji Hansen MD ATTENDING PHYSICIAN: KASSANDRA DANIELLE, SHALLOT PACKER FOR LUIS FERNANDO JJ MD MMF/modl /[id number] d: 02/19/17 1716 t: 02/20/17 1643, CONSULTATION REPORT
--- NOTE | ~2017-02-17 | HP ---
PATIENT'S NAME: CHAMP COPELAND [facility] AGE: 51 Y [address] ROOM: [place] [address] LOCATION: GPCU ADMIT DATE: 02/17/2017 History & Physical DISCHARGE DATE: FAMILY PHYSICIAN: Reji Hansen MD ATTENDING PHYSICIAN: KASSANDRA DANIELLE DATE OF SERVICE: CHIEF COMPLAINT: "I am full of water." HISTORY OF PRESENT ILLNESS: A 51-year-old lady with a past medical history of alcoholic cirrhosis with multiple admissions due to ascites and decompensated liver disease, presented to the primary care physician's office today with progressive weight gain over the course of couple of weeks now. She had been receiving outpatient IV Lasix as well as albumin treatment without any significant benefit. She also had evaluation for paracentesis last Friday, otherwise no enough fluid to be tapped. On my encounter, she is saying that her belly is weak, and she feels that she has gained about more than 40 pounds of weight in the last couple of weeks. She denied any abdominal pain but did endorse that because of the increase in girth in abdomen, it is harder to breathe now, and she gets exertional dyspnea. She denied any chest pain, any cough production, any palpitation, headache, dizziness, but did endorse having leg swelling. No constipation or dark tarry stools, burning on urination, or any weakness noted. REVIEW OF SYSTEMS: All other systems reviewed and were negative except what is mentioned in the HPI. PAST MEDICAL HISTORY: 1. Decompensated liver disease secondary to alcoholic cirrhosis. 2. Recurrent ascites. 3. Anemia of Crohn's disease. 4. History of Guillain-barre syndrome. 5. Chronic hyponatremia. 6. Morbid obesity. 7. Peripheral neuropathy. 8. Loss of left eye secondary to facial trauma. SOCIAL HISTORY: Former alcohol abuse. No ongoing toxic habits. FAMILY HISTORY: PATIENT'S NAME: CHAMP COPELAND [facility] AGE: 51 Y [address] ROOM: [place] [address] LOCATION: GPCU ADMIT DATE: 02/17/2017 History & Physical DISCHARGE DATE: FAMILY PHYSICIAN: Reji Hansen MD ATTENDING PHYSICIAN: KHALID,CANNON A Significant for hypertension in mom and dad. MEDICATIONS: See MAR ALLERGIES: THE PATIENT IS ALLERGIC TO IODINATED CONTRAST. PHYSICAL EXAMINATION: VITAL SIGNS: Blood pressure 133/60 respiratory rate of 18, pulse of 86, temp 97.6. GENERAL: In no acute distress. Alert and oriented x3. HEENT: Head: Atraumatic and normocephalic. Eyes: Left artificial eye. Nonicteric. No pallor. Oropharynx: Moist mucous membranes. CARDIOVASCULAR: S1, S2. No murmurs, gallops, or rubs. LUNGS: Clear to auscultation bilaterally. ABDOMEN: Obese with multiple striae montgomery. Negative fluid, thrill. Shifting dullness is present. No tenderness or rigidity or rebound tenderness noted. Bowel sounds are present. EXTREMITIES: +3 extremity edema. MUSCULOSKELETAL: No muscle tenderness or joint swelling noted. PSYCH: Normal affect, mood, and speech. NEURO: Cranial nerves grossly intact with intact motor and sensory system. LABORATORY DATA: Laboratory work is pending at this point. ASSESSMENT AND PLAN: 1. Ascites, recurrent. 2. Anasarca. 3. Decompensated liver disease secondary to alcoholic cirrhosis. 4. Chronic hyponatremia. 5. Morbid obesity. 6. Chronic kidney disease stage 3. The patient will be admitted to the inpatient PCU. Basic lab work including a chemistry as well as CBC have been ordered. Limited bedside ultrasonography did not reveal any significant ascites tapable at this point. Dr. Montesinos wanted nephrology, Dr. Angel, to see this patient given her chronic kidney disease, as well as hyponatremia and to plan for Bumex drip if necessary. We will put a consult in. Gastroenterology consultation can be decided by the primary team in the morning. Low-sodium diet for now. SCDs. DVT prophylaxis with heparin. The patient is full code. Her course in the hospital will be dictated by her clinical progress. KASSANDRA DANIELLE MD PATIENT'S NAME: CHAMP COPELAND [facility] AGE: 51 Y [address] ROOM: [place] [address] [facility]: 02/17/2017 History & Physical DISCHARGE DATE: FAMILY PHYSICIAN: Reji Hansen MD ATTENDING PHYSICIAN: KASSANDRA DANIELLE /[id number] D: [id number] T: [id number] HISTORY & PHYSICAL
[~2017-02-17 16:47] MED LIST changes: -LACTINEX (FLORA1 TAB PO; -TUMS REGULAR ST1 TAB PO
[2017-02-17 18:36] LABS: EOSINOPHIL # 0.1 K/uL (0.0-0.5); EOSINOPHIL % 2.3 %; HEMATOCRIT 22.7 % (33.0-46.0); IMMATURE GRANULOCYTE % 0.8 %; LYMPHOCYTE # 0.5 K/uL (0.8-4.0); LYMPHOCYTE % 12.7 %; MCV 101.8 fl (83.0-98.0); MONOCYTE # 0.4 K/uL (0.0-1.0); MONOCYTE % 10.7 %; NEUTROPHIL # (ANC) 2.9 K/uL (1.8-7.8); NEUTROPHIL % 73.5 %; NRBC % 0 /100WBC (0-0.00); RBC 2.23 M/uL (3.50-5.50); RDW-CV 15.3 % (11.9-14.6); WBC 3.9 K/uL (4.0-11.0)
[2017-02-17 18:37] LABS: HEMOGLOBIN 7.5 g/dL (10.0-15.0); MCH 33.6 pg (27.0-34.0); PLATELET COUNT 42 K/uL (150-450)
[2017-02-17 18:53] LABS: ALBUMIN 3.4 gm/dL (3.5-5.0); TOTAL BILIRUBIN 1.1 mg/dL (0.0-1.5); TOTAL PROTEIN 6.4 g/dL (6.0-8.4)
[2017-02-17 18:54] LABS: ALBUMIN 3.4 gm/dL (3.5-5.0); ANION GAP 12.3 (10.0-19.0); CALCIUM 8.3 mg/dL (8.5-10.5); PHOSPHORUS 3.5 mg/dL (2.5-4.9); POTASSIUM 4.3 mMol/L (3.7-5.1)
[2017-02-18 07:21] LABS: ANION GAP 11.4 (10.0-19.0); CALCIUM 8.1 mg/dL (8.5-10.5); POTASSIUM 4.4 mMol/L (3.7-5.1)
[2017-02-19 04:46] LABS: ALBUMIN 3.8 gm/dL (3.5-5.0); ANION GAP 13.7 (10.0-19.0); CALCIUM 8.1 mg/dL (8.5-10.5); CREATININE 1.2 mg/dL (0.5-1.1); PHOSPHORUS 3.4 mg/dL (2.5-4.9); POTASSIUM 3.7 mMol/L (3.7-5.1)
[2017-02-20 06:03] LABS: ALBUMIN 3.7 gm/dL (3.5-5.0); ANION GAP 11.5 (10.0-19.0); CALCIUM 8.6 mg/dL (8.5-10.5); CREATININE 1.2 mg/dL (0.5-1.1); PHOSPHORUS 3.4 mg/dL (2.5-4.9); POTASSIUM 3.5 mMol/L (3.7-5.1)
[2017-02-21 06:35] LABS: ALBUMIN 4.1 gm/dL (3.5-5.0); ANION GAP 15.5 (10.0-19.0); CALCIUM 8.7 mg/dL (8.5-10.5); CREATININE 1.2 mg/dL (0.5-1.1); MAGNESIUM 2.1 mg/dL (1.8-2.6); PHOSPHORUS 3.6 mg/dL (2.5-4.9); POTASSIUM 3.5 mMol/L (3.7-5.1)
[2017-02-21 09:39] LABS: HEMATOCRIT 20.7 % (33.0-46.0); MCV 104.5 fl (83.0-98.0); MPV 11.2 fl (9.4-12.4); RBC 1.98 M/uL (3.50-5.50); RDW-CV 15.4 % (11.9-14.6); WBC 2.3 K/uL (4.0-11.0)
[2017-02-21 09:45] LABS: HEMOGLOBIN 6.6 g/dL (10.0-15.0); MCH 33.3 pg (27.0-34.0); MCHC 31.9 gm/dL (32.0-36.5); PLATELET COUNT 41 K/uL (150-450)
[2017-02-21 10:21] LABS: ABSOLUTE NEUTROPHIL CT (ANC) 1.8 K/uL (1.8-7.8); BANDED NEUTROPHIL # 0.2 K/uL (0.0-0.1); BANDED NEUTROPHILS % 8 %; LYMPHOCYTE # 0.3 K/uL (0.8-4.0); LYMPHOCYTE % 12 %; MONOCYTE # 0.2 K/uL (0.0-1.0); SEGMENTED NEUTROPHIL # 1.6 K/uL (1.8-7.8); SEGMENTED NEUTROPHIL % 70 %
[2017-02-21 18:09] LABS: ANION GAP 10.7 (10.0-19.0); CALCIUM 8.9 mg/dL (8.5-10.5); CREATININE 1.2 mg/dL (0.5-1.1); POTASSIUM 3.7 mMol/L (3.7-5.1)
[2017-02-22 04:57] LABS: ALBUMIN 4.1 gm/dL (3.5-5.0); ANION GAP 12.8 (10.0-19.0); CALCIUM 9.2 mg/dL (8.5-10.5); CREATININE 1.2 mg/dL (0.5-1.1); POTASSIUM 3.8 mMol/L (3.7-5.1)
[2017-02-23 04:01] LABS: ANION GAP 12.8 (10.0-19.0); CREATININE 1.3 mg/dL (0.5-1.1); PHOSPHORUS 4.7 mg/dL (2.5-4.9); POTASSIUM 3.8 mMol/L (3.7-5.1)
[2017-02-23 04:06] LABS: MCV 104.8 fl (83.0-98.0); MPV 10.8 fl (9.4-12.4); RDW-CV 15.2 % (11.9-14.6); WBC 3.2 K/uL (4.0-11.0)
[2017-02-23 04:07] LABS: HEMOGLOBIN 7.1 g/dL (10.0-15.0); MCH 33.8 pg (27.0-34.0); MCHC 32.3 gm/dL (32.0-36.5); PLATELET COUNT 42 K/uL (150-450)
[2017-02-23 06:43] LABS: ABSOLUTE NEUTROPHIL CT (ANC) 2.7 K/uL (1.8-7.8); LYMPHOCYTE # 0.3 K/uL (0.8-4.0); LYMPHOCYTE % 9 %; MONOCYTE # 0.2 K/uL (0.0-1.0); SEGMENTED NEUTROPHIL # 2.7 K/uL (1.8-7.8); SEGMENTED NEUTROPHIL % 85 %
[2017-02-24 04:11] LABS: ANION GAP 13.8 (10.0-19.0); CALCIUM 9.2 mg/dL (8.5-10.5); CREATININE 1.4 mg/dL (0.5-1.1); PHOSPHORUS 4.6 mg/dL (2.5-4.9); POTASSIUM 3.8 mMol/L (3.7-5.1)
[2017-02-25 04:30] LABS: ANION GAP 10.4 (10.0-19.0); CALCIUM 9.3 mg/dL (8.5-10.5); CREATININE 1.4 mg/dL (0.5-1.1); PHOSPHORUS 4.3 mg/dL (2.5-4.9); POTASSIUM 4.4 mMol/L (3.7-5.1)
[2017-02-25 04:36] LABS: MAGNESIUM 2.8 mg/dL (1.8-2.6)
[2017-02-25 04:57] LABS: BASOPHIL % 0.2 %; EOSINOPHIL # 0.1 K/uL (0.0-0.5); EOSINOPHIL % 1.7 %; IMMATURE GRANULOCYTE % 0.4 %; LYMPHOCYTE # 0.7 K/uL (0.8-4.0); LYMPHOCYTE % 14.8 %; MCV 103.3 fl (83.0-98.0); MONOCYTE # 0.7 K/uL (0.0-1.0); MONOCYTE % 15.2 %; MPV 10.9 fl (9.4-12.4); NEUTROPHIL # (ANC) 3.2 K/uL (1.8-7.8); NEUTROPHIL % 67.7 %; NRBC % 0 /100WBC (0-0.00); RBC 2.13 M/uL (3.50-5.50); RDW-CV 14.7 % (11.9-14.6); WBC 4.7 K/uL (4.0-11.0)
[2017-02-25 04:59] LABS: HEMOGLOBIN 7.2 g/dL (10.0-15.0); MCH 33.8 pg (27.0-34.0); MCHC 32.7 gm/dL (32.0-36.5)
[2017-02-25 05:00] LABS: PLATELET COUNT 48 K/uL (150-450)
[2017-02-25] MEDS ORDERED: LACTINEX (FLORA1 TAB PO (11:31)
[2017-03-26] MEDS ORDERED: TUMS REGULAR ST1 TAB PO (09:57)
== END 2017-02-25 13:17 | disposition disaster alternative care site (69) | DRG 433 ==
LOC: GPCU 16:47
PROVIDERS: Internal Medicine; Internal Medicine Nephrology; Nurse Practitioner; Physician Assistant; ADMIT Internal Medicine
PROC: 07DR3ZX Extraction of Iliac Bone Marrow, Percutaneous Approach, Diagnostic (ICD-10-PCS; principal; 2017-02-21)
DX: K70.31 Alcoholic cirrhosis of liver with ascites (principal); D61.818 Other pancytopenia; E87.1 Hypo-osmolality and hyponatremia; Z68.44 Body mass index [BMI] 60.0-69.9, adult; N18.3 Chronic kidney disease, stage 3 (moderate); E66.01 Morbid (severe) obesity due to excess calories; R60.1 Generalized edema; D63.1 Anemia in chronic kidney disease
CPT/HCPCS: J1642; J1644; J7040; J7050; P9047; Q4081

== ENCOUNTER → 2017-03-31 | Day surgery (SDC) | payer OTHER ==
[~2017-03-31] VITALS: Ht 162.6 cm; Wt 145.2 kg
[~2017-03-31] MED LIST changes: +LACTINEX (FLORA1 TAB PO; +TUMS REGULAR ST1 TAB PO
== END | disposition disaster alternative care site (69) ==
LOC: GPOC 03-25 13:00 → GEND 08:43 → GPOC 13:00
PROC: 0W3P8ZZ Control Bleeding in Gastrointestinal Tract, Via Natural or Artificial Opening Endoscopic (ICD-10-PCS; principal; 2017-03-31)
DX: K31.811 Angiodysplasia of stomach and duodenum with bleeding (principal); K74.60 Unspecified cirrhosis of liver; I85.10 Secondary esophageal varices without bleeding; K31.89 Other diseases of stomach and duodenum; F41.9 Anxiety disorder, unspecified; F32.9 Major depressive disorder, single episode, unspecified; Z79.899 Other long term (current) drug therapy; Z98.890 Other specified postprocedural states
CPT/HCPCS: J1642; J2001; J7030